=== PATIENT | male | born 1975 | race African-American/Black ===

== ENCOUNTER 2021-04-16 06:03 | Emergency (ER) | payer SELFPAY ==
[~2021-04-16] VITALS: Ht 172.7 cm; Wt 81.8 kg
--- NOTE | 2021-04-16 06:20 | PHYS DOC ---
Adult General Chief Complaint Chief Complaint: MECHANICAL FALL HPI HPI Patient is a 46-year-old male presenting via EMS for fall. This was unwitnessed but at home as patient is a 46-year-old male who still lives with his parents. Patient reportedly urinating and while standing, states he lost his balance and fell hitting the wall and he thinks he hit his head. He is a poor historian. Family who lives with patient reportedly heard a thud against the wall and found patient confused in the bathroom prompting him to call EMS. On arrival, patient found to be hemodynamically stable and subsequently transported to our facility for evaluation. On arrival, patient reports that his cervical spine hurts. States he has never had this happen before. Denies any significant medical issues and takes no medications on a daily basis. Admits to tobacco and marijuana use only Father later presents to ER and assisted with history, states he was the one who heard the thud and responded to patient upstairs. Reports when getting up stairs he found patient walking out of the bathroom with his pants not fully done and again fell to the floor prompting him to call EMS. Sites patient is never seen a primary care physician and has no diagnosed medical issues. 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 Reports that he was there for a couple years but after returning home " he was not in the same", states he spent several years homeless on the streets before relocating and [place] with his parents here in [place] Review of Systems Review of Systems Fourteen body systems of review of systems have been reviewed. See HPI for pertinent positives and negative responses, other tinajero all other systems are negative, non-pertinent or non-contributory Allergies Allergies Allergies Coded Allergies Type Severity Reaction Last Updated Verified No Known Drug Allergies 04/16/21 No Physical Exam Physical Exam Constitutional: Pt is oriented to person, place, and time. Pt appears well-developed and well- nourished. HEENT: Head: Normocephalic and atraumatic. TMs clear, no hemotympanum Conjunctivae and EOM are normal. Pupils are equal, round, and reactive to light. Oropharynx is clear and moist. No hematomas or lacerations or abrasions to face or scalp OP clear, no blood, no malocclusion, dentition intact Nares clear, no nasal septal hematoma Midface stable Neck: C-spine midline nontender, no step-offs Cardiovascular: Normal rate, regular rhythm and normal heart sounds. Pulmonary/Chest: Effort normal and breath sounds normal. No respiratory distress. No wheezes. CTA bilaterally Abdominal: Soft. Bowel sounds are normal. Pt exhibits no distension. There is no tenderness. Musculoskeletal: No bony tenderness to extremities, no deformities, full ROM extremities Chest wall stable Pelvis stable and non-tender No vertebral TTP and spine without stepoffs Neurological: Pt is alert and oriented to person, place, and time. Moving all extremities willfully, able to wiggle all fingers and toes Alert and oriented x 3 Sensation grossly intact Skin: Skin is warm and dry. No abrasions, no lacerations Psychiatric: Behavior is appropriate for situation Current Patient Data Vital Signs Vital Signs Date Time Temp Pulse Resp B/P (MAP) Pulse Ox O2 Delivery O2 Flow Rate FiO2 04/16/21 06:16 97.5 81 18 109/67 (81) 100 Room Air Lab Results Laboratory Tests Test 04/16/21 06:19 04/16/21 06:27 04/16/21 07:02 04/16/21 07:03 Glucose (Fingerstick) 103 mg/dL White Blood Count 6.9 x10^3/uL Red Blood Count 4.35 x10^6/uL Hemoglobin 13.8 g/dL Hematocrit 40.7 % Mean Corpuscular Volume 94 fL Mean Corpuscular Hemoglobin 32 pg Mean Corpuscular Hemoglobin Concent 34 g/dL Red Cell Distribution Width 12.1 % Platelet Count 287 x10^3/uL Neutrophils (%) (Auto) 66 % Lymphocytes (%) (Auto) 16 % Monocytes (%) (Auto) 16 % Eosinophils (%) (Auto) 1 % Basophils (%) (Auto) 1 % Neutrophils # (Auto) 4.5 x10^3uL Lymphocytes # (Auto) 1.1 x10^3/uL Monocytes # (Auto) 1.1 x10^3/uL Eosinophils # (Auto) 0.1 x10^3/uL Basophils # (Auto) 0.1 x10^3/uL Sodium Level 129 mmol/L Potassium Level 4.0 mmol/L Chloride Level 95 mmol/L Carbon Dioxide Level 28 mmol/L Anion Gap 6 Blood Urea Nitrogen 14 mg/dL Creatinine 1.0 mg/dL Estimated GFR (Cockcroft-Gault) 97.3 Glucose Level 92 mg/dL Calcium Level 8.4 mg/dL Troponin I High Sensitivity 7 ng/L Ethyl Alcohol Level < 10 mg/dL Influenza Type A (Rapid) Negative Influenza Type B (Rapid) Negative SARS-CoV-2 Antigen (Rapid) Negative Lactic Acid Level 0.9 mmol/L Test 04/16/21 08:46 Urine Collection Type Unknown Urine Color Anupama Urine Clarity Clear Urine pH 6.0 Urine Specific [place] 1.020 Urine Protein 30 mg/dl Urine Glucose (UA) Neg mg/dL Urine Ketones (Stick) 80 mg/dL Urine Blood Neg Urine Nitrite Neg Urine Bilirubin Small Urine Urobilinogen Dipstick 1.0 mg/dL Urine Leukocyte Esterase Neg Urine RBC 0 /HPF Urine WBC 1-4 /HPF Urine Squamous Epithelial Cells Occ /LPF Urine Bacteria 0 /HPF Urine Granular Casts Few /HPF Urine Mucus Mod /LPF Urine Opiates Screen Neg Urine Methadone Screen Neg Urine Barbiturates Neg Urine Phencyclidine Screen Neg Urine Amphetamine/Methamphetamine Neg Urine Benzodiazepines Screen Neg Urine Cocaine Screen Neg Urine Cannabinoids Screen Pos Urine Ethyl Alcohol Neg Current Medications Medications (Trade) Dose Ordered Sig/Ashley Route PRN Reason Start Time Stop Time Status Last Admin Dose Admin Sodium Chloride 1,000 ml @ 1,000 mls/hr 1X ONCE IV 04/16/21 07:30 04/16/21 08:29 DC 04/16/21 07:29 Azithromycin (Zithromax) 500 mg 1X ONCE PO 04/16/21 09:00 04/16/21 09:01 DC EKG EKG EKG ordered and interpreted by myself at 0640 hrs. sinus rhythm at 85 bpm, unremarkable intervals, no axis deviation, no acute ischemic findings, no STEMI Radiology/Procedures Radiology/Procedures Study: XR PELVIS 1-2V Indication: Fall. Comparison: None. Findings: Hip alignment is anatomic. No fracture seen to involve the proximal femurs or obturator rings. Grossly intact sacrum and partially assessed lower lumbar spine. Probable cam-type deformities on both the right and left. Hip joint space height is maintained. Impression: No acute osseous abnormality identified on the single obtained view. Electronically signed by: TA KIRBY MD (04/16/2021 7:27 AM) [facility] ///////////////// Study: XR CHEST 1V Indication: Fall. Comparison: None. Findings: The cardiomediastinal silhouette is within normal limits for size. Unremarkable raman. Relatively symmetric haziness at the subpleural aspect of both lungs is favored mostly from summation artifact. Mildly increased lung markings. Haziness approaching the right costophrenic angle and the right hemidiaphragm is minimally elevated. No pneumothorax. The osseous structures are not fully evaluated but the adequately assessed ribs are grossly intact. Impression: Mild atelectasis, infiltrates or summation artifact just above the right costophrenic angle. No layering effusion, pneumothorax or obvious fracture. The findings are favored unrelated to the patient's reported fall and may be of no clinical significance but correlate for any symptoms that would suggest an atypical/viral pneumonia. Electronically signed by: TA KIRBY MD (04/16/2021 7:26 AM) [facility] //////////////////////// STUDY: CT head and cervical spine without contrast INDICATION: Fall. Head and neck pain. COMPARISON: None. TECHNIQUE: Axial CT imaging through the head and cervical spine without the use of intravenous contrast. Sagittal and coronal reformats were obtained. One or more of the following individualized dose reduction techniques were utilized for this examination: 1. Automated exposure control 2. Adjustment of the mA and/or kV according to patient size 3. Use of iterative reconstruction technique. FINDINGS: CT head: No acute intracranial hemorrhage. Castro-white matter differentiation is maintained. No mass effect, midline shift or hydrocephalus. Subtle low-attenua tion at the base of the right more so than left frontal lobes, image 8 series 6 and image 20 series 9, may be related to remote trauma. Mild posterior, left paramidline scalp contusion. No depressed calvarial fracture. Paranasal sinus mucosal thickening and some layering fluid favored inflammatory in etiology. Normally aerated mastoid air cells. CT cervical spine: No acute fracture or traumatic malalignment. Straightening of cervical lordosis. Discogenic arthrosis and uncovertebral joint hypertrophy at several levels but greatest at C3-C4 and C5-C6. Small amount of posterior longitudinal ligament ossification. Ventral osteophyte formation. No advanced facet arthrosis. Mild to borderline moderate osseous neural foraminal stenosis on the left at C3-C4 and on the right at C5-C6. Mild to potentially moderate central canal stenosis at a few levels but not fully characterized. No soft tissue sequela of trauma. No apical pneumothorax. IMPRESSION: CT head: 1. Mild left paramidline scalp contusion mainly along the occipital lobe. No depressed calvarial fracture or acute intracranial hemorrhage. 2. Paranasal sinus mucosal thickening and some layering fluid favored inflammatory in etiology. Correlate for any symptoms of active sinusitis. CT cervical spine: 1. No acute fracture or traumatic malalignment. 2. Multilevel degenerative changes which are somewhat accelerated for patient age. Favored mostly mild central canal and neural foraminal stenosis at a few levels but borderline moderate. Electronically signed by: TA KIRBY MD (04/16/2021 7:21 AM) [facility] Heart Score C/O Chest Pain: No HEART Score for Chest Pain: HEART Score for Chest Pain Response (Comments) Value History Moderately Suspicious 1 ECG Normal 0 Age >45 - < 65 1 Risk Factors No Risk Factors 0 Troponin < Normal Limit 0 Total 2 Risk Factors: Risk Factors: DM, Current or recent (<one month) smoker, HTN, HLP, family history of CAD, obesity. Risk Scores: Risk Factors: DM, Current or recent (<one month) smoker, HTN, HLP, family hist ory of CAD, obesity. Course & Med Decision Making Course & Med Decision Making ABCs unremarkable HPI physical exam and comprehensive ER work-up nonconcerning for any emergent or surgical issues I disclosed entirety of ER work-up with patient and father at bedside with good understanding. I discussed findings concerning for atypical/viral pneumonia and sinusiti. Patient unvaccinated against COVID-19 and rapid test negative With that said, joint decision made to aggressively treat with antibiotic therapy with appropriate self quarantine and supportive care instructions advised. I disclosed need for hospitalization but patient and father deferred given well appearance of patient feeling at baseline and ambulatory without issu es Patient does not have primary care physician and so, it was advised that he seek to establish care with a local provider in the area for continuity of care in outpatient setting. Return precautions discussed, all questions and concerns addressed prior to ER departure Dragon Disclaimer Dragon Disclaimer This electronic medical record was generated, in whole or in part, using a voice recognition dictation system. Departure Departure: Impression: Primary Impression: Fatigue Additional Impressions: Syncope Atypical pneumonia Disposition: HOME / SELF CARE / HOMELESS Condition: STABLE Additional Instructions: As discussed prior to ER departure, your vitals, physical exam and comprehensive ER work-up were nonconcerning for any emergent or surgical issues. I disclosed radiographic evidence of sinusitis and potential atypical/viral pneumonia concerning for COVID-19. Your rapid COVID-19 test was negative. I disclose little indication for further diagnostic work-up and/or need for hospitalization at present and joint decision was made to send you home with new prescription for antibiotics. Please take these as scheduled to completion. Is imperative you establish care with a local primary care physician to follow-up on presenting issue today as today's presentation might be an acute presentation of more concerning issues. If any concerning signs or symptoms present prior to outpatient follow-up please do not hesitate to come back for repeat evaluation. It was a pleasure to take care of you and I wish you the best going forward Scripts Azithromycin (AZITHROMYCIN TABLET) 500 Mg Tablet 1 TAB PO DAILY for sinusitis for 2 Days, #2 TAB 0 Refills Prov: NARENDRA WILLSON DO 04/16/21 Problem Qualifiers NARENDRA WILLSON DO Apr 16, 2021 06:20
[2021-04-16 07:04] LABS: BASO # 0.1 x10^3/uL (0.0-0.2); BASO % 1 % (0-3); CALCIUM 8.4 mg/dL (8.5-10.1); EOS # 0.1 x10^3/uL (0.0-0.7); EOS % 1 % (0-3); GFR 97.3; HEMATOCRIT 40.7 % (39.0-53.0); HEMOGLOBIN 13.8 g/dL (13.0-17.5); LYMPH # 1.1 x10^3/uL (1.0-4.8); LYMPH % 16 % (24-48); MEAN CORPUSCULAR HEMOGLOBIN 32 pg (25-35); MEAN CORPUSCULAR HGB CONC 34 g/dL (31-37); MEAN CORPUSCULAR VOLUME 94 fL (79-100); MONO # 1.1 x10^3/uL (0.0-1.1); MONO % 16 % (0-9); NEUT # 4.5 x10^3uL (1.8-7.7); NEUT % 66 % (31-73); PLATELET COUNT 287 x10^3/uL (140-400); RED BLOOD COUNT 4.35 x10^6/uL (4.30-5.70); RED CELL DISTRIBUTION WIDTH 12.1 % (11.5-14.5); WHITE BLOOD COUNT 6.9 x10^3/uL (4.0-11.0)
--- NOTE | 2021-04-16 07:24 | RAD ---
STUDY: CT head and cervical spine without contrast INDICATION: Fall. Head and neck pain. COMPARISON: None. TECHNIQUE: Axial CT imaging through the head and cervical spine without the use of intravenous contra st. Sagittal and coronal reformats were obtained. One or more of the following individualized dose reduction techniques were utilized for this examinat ion: 1. Automated exposure control 2. Adjustment of the mA and/or kV according to patient size 3. Use of iterative reconstruction technique. FINDINGS: CT head: No acute intracranial hemorrhage. Castro-white matter differentiation is maintained. No mass effect, mi dline shift or hydrocephalus. Subtle low-attenuation at the base of the right more so than left front al lobes, image 8 series 6 and image 20 series 9, may be related to remote trauma. Mild posterior, left paramidline scalp contusion. No depressed calvarial fracture. Paranasal sinus mu cosal thickening and some layering fluid favored inflammatory in etiology. Normally aerated mastoid a ir cells. CT cervical spine: No acute fracture or traumatic malalignment. Straightening of cervical lordosis. Discogenic arthrosis and uncovertebral joint hypertrophy at sever al levels but greatest at C3-C4 and C5-C6. Small amount of posterior longitudinal ligament ossificati on. Ventral osteophyte formation. No advanced facet arthrosis. Mild to borderline moderate osseous ne ural foraminal stenosis on the left at C3-C4 and on the right at C5-C6. Mild to potentially moderate central canal stenosis at a few levels but not fully characterized. No soft tissue sequela of trauma. No apical pneumothorax. IMPRESSION: CT head: 1. Mild left paramidline scalp contusion mainly along the occipital lobe. No depressed calvarial fra cture or acute intracranial hemorrhage. 2. Paranasal sinus mucosal thickening and some layering fluid favored inflammatory in etiology. Radha elate for any symptoms of active sinusitis. CT cervical spine: 1. No acute fracture or traumatic malalignment. 2. Multilevel degenerative changes which are somewhat accelerated for patient age. Favored mostly mi ld central canal and neural foraminal stenosis at a few levels but borderline moderate. Electronically signed by: TA KIRBY MD (04/16/2021 7:21 AM) [facility]
--- NOTE | 2021-04-16 07:28 | RAD ---
Study: XR CHEST 1V Indication: Fall. Comparison: None. Findings: The cardiomediastinal silhouette is within normal limits for size. Unremarkable raman. Relatively symmetric haziness at the subpleural aspect of both lungs is favored mostly from summation artifact. Mildly increased lung markings. Haziness approaching the right costophrenic angle and the right hemidiaphragm is minimally elevated. No pneumothorax. The osseous structures are not fully evaluated but the adequately assessed ribs are grossly intact. Impression: Mild atelectasis, infiltrates or summation artifact just above the right costophrenic angle. No layer ing effusion, pneumothorax or obvious fracture. The findings are favored unrelated to the patient's r eported fall and may be of no clinical significance but correlate for any symptoms that would suggest an atypical/viral pneumonia. Electronically signed by: TA KIRBY MD (04/16/2021 7:26 AM) [facility]
[2021-04-16] MEDS ORDERED: IV NORMAL SALINE 1,000ML 1,000 ML IV ONE (07:30)
--- NOTE | 2021-04-16 07:30 | RAD ---
Study: XR PELVIS 1-2V Indication: Fall. Comparison: None. Findings: Hip alignment is anatomic. No fracture seen to involve the proximal femurs or obturator rings. Grossl y intact sacrum and partially assessed lower lumbar spine. Probable cam-type deformities on both the right and left. Hip joint space height is maintained. Impression: No acute osseous abnormality identified on the single obtained view. Electronically signed by: TA KIRBY MD (04/16/2021 7:27 AM) [facility]
[2021-04-16 08:08] VITALS: BP 119/72
[2021-04-16 08:33] LABS: INFLUENZA A PATIENT NEGATIVE (NEGATIVE); INFLUENZA B PATIENT NEGATIVE (NEGATIVE)
--- NOTE | 2021-04-16 08:54 | EKG ---
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
[2021-04-16] MEDS ORDERED: AZITHROMYCIN 250 MG TABLET. PO ONE (09:00)
[2021-04-16 09:08] LABS: BARBITURATES NEG (NEG); BENZODIAZEPINES NEG (NEG); CANNABINOIDS POS (NEG); COCAINE NEG (NEG); METHADONE NEG (NEG); OPIATES NEG (NEG); PHENCYCLIDINE NEG (NEG)
[2021-04-16 09:12] LABS: AMPHETAMINE/METHAMPHETAMINE NEG (NEG)
[2021-04-16 09:24] LABS: BACTERIA,URINE 0 /HPF (0-FEW); BILIRUBIN,URINE SMALL (NEG); CLARITY,URINE CLEAR; COLOR,URINE AMBER; GLUCOSE,URINE NEG (NEG); GRANULAR CASTS,URINE FEW /HPF; NITRITE,URINE NEG (NEG); RBC,URINE 0 /HPF (0-2); SQUAMOUS EPITHELIAL CELL,UR OCC /LPF
[2021-04-16] MEDS ORDERED: AZIT500T4 PO (09:36)
== END 2021-04-16 09:50 | disposition home or self-care (01) ==
LOC: ER 06:03
DX: R55 Syncope and collapse (principal); J18.9 Pneumonia, unspecified organism; R53.83 Other fatigue; Z20.822 Contact with and (suspected) exposure to COVID-19; W18.09XA Striking against other object with subsequent fall, initial encounter; Y93.89 Activity, other specified; Y92.89 Other specified places as the place of occurrence of the external cause; Y99.8 Other external cause status
CPT/HCPCS: 36415; 70450; 71045; 72125; 72170; 80048; 80307; 81001; 82947; 83605; 84484; 85025; 87428; 93005; 96360; 96361; 99285; G0480; J7030

== ENCOUNTER 2021-05-16 08:11 | Emergency (ER) | payer SELFPAY ==
[~2021-05-16] VITALS: Ht 172.7 cm; Wt 79.0 kg
[~2021-05-16 08:11] MED LIST: AZIT500T4 PO
--- NOTE | 2021-05-16 08:26 | PHYS DOC ---
Past History Past Surgical History: Other Additional Past Surgical Histo: wisdom teeth Smoking: Cigarettes Alcohol Use: None Drug Use: Methamphetamine Adult General Chief Complaint Chief Complaint: DRUG ABUSE HPI HPI Patient is a 46-year-old male presenting for methamphetamine abuse. This is a chronic issue. States he has been using meth since a teenager. Reports he last used 5 hours ago, states he used some stuff " that is supposed to kill people". Reports that he has things crawling in his skin and specifically in his neck he feels it crawling down from the posterior portion of his occiput down to his anterior neck. Denies any falls trauma fever or other diagnosed medical condit ions, takes no other medications on a daily basis. He is here concerned that he is going to Review of Systems Review of Systems Fourteen body systems of review of systems have been reviewed. See HPI for pertinent positives and negative responses, other tinajero all other systems are negative, non-pertinent or non-contributory Allergies Allergies Allergies Coded Allergies Type Severity Reaction Last Updated Verified No Known Drug Allergies 04/16/21 No Physical Exam Physical Exam Constitutional: Appears older than stated age, acutely anxious and appears under the influence of methamphetamines, nontoxic in appearance HENT: Normocephalic, atraumatic, bilateral external ears normal, oropharynx moist with poor dentition globally, no oral exudates, nose normal. Eyes: PERRLA, EOMI, conjunctiva normal, no discharge. Neck: Normal range of motion, no tenderness, supple, no stridor. Cardiovascular: Heart rate tachycardic, sinus rhythm, no murmurs rubs or gallops Lungs & Thorax: Bilateral breath sounds clear to auscultation Abdomen: Bowel sounds normal, soft, no tenderness, no masses, no pulsatile masses. Nonsurgical abdomen, no peritoneal signs Skin: Warm, dry, no erythema, no rash. Numerous IV drug sites to bilateral upper extremities in addition to minute pinpricks along entirety of back that are self-induced per patient Back: No tenderness, no CVA tenderness. Extremities: No tenderness, no cyanosis, no clubbing, ROM intact, no edema. Neurologic: Alert and oriented X 3, normal motor & sensory function, no focal deficits noted. Psychologic: Anxious affect and mood Current Patient Data Vital Signs Vital Signs Date Time Temp Pulse Resp B/P (MAP) Pulse Ox O2 Delivery O2 Flow Rate FiO2 05/16/21 08:27 98.2 120 20 146/99 (115) 98 Room Air Vital Signs Date Time Temp Pulse Resp B/P (MAP) Pulse Ox O2 Delivery O2 Flow Rate FiO2 05/16/21 08:27 98.2 120 20 146/99 (115) 98 Room Air Lab Results Laboratory Tests Test 05/16/21 09:10 White Blood Count 4.5 x10^3/uL Red Blood Count 3.80 x10^6/uL Hemoglobin 12.3 g/dL Hematocrit 36.8 % Mean Corpuscular Volume 97 fL Mean Corpuscular Hemoglobin 32 pg Mean Corpuscular Hemoglobin Concent 34 g/dL Red Cell Distribution Width 13.8 % Platelet Count 264 x10^3/uL Neutrophils (%) (Auto) 62 % Lymphocytes (%) (Auto) 22 % Monocytes (%) (Auto) 12 % Eosinophils (%) (Auto) 3 % Basophils (%) (Auto) 1 % Neutrophils # (Auto) 2.8 x10^3uL Lymphocytes # (Auto) 1.0 x10^3/uL Monocytes # (Auto) 0.5 x10^3/uL Eosinophils # (Auto) 0.1 x10^3/uL Basophils # (Auto) 0.0 x10^3/uL Sodium Level 139 mmol/L Potassium Level 3.4 mmol/L Chloride Level 105 mmol/L Carbon Dioxide Level 28 mmol/L Anion Gap 6 Blood Urea Nitrogen 11 mg/dL Creatinine 1.0 mg/dL Estimated GFR (Cockcroft-Gault) 97.3 Glucose Level 129 mg/dL Calcium Level 8.6 mg/dL Troponin I High Sensitivity 5 ng/L EKG EKG EKG ordered and interpreted by myself at 0842 hrs. as sinus tachycardia at 117 bpm, QTC 510 otherwise unremarkable intervals, no axis deviation, no acute ischemic findings, occasional PVCs present, no STEMI Radiology/Procedures Radiology/Procedures EXAM: CHEST ONE VIEW. HISTORY: Chest pain. COMPARISON: 04/16/2021. FINDINGS: A frontal view of the chest is obtained. The inspiration is small with bibasilar atelectasis. There is no pneumothorax or pleural effusion. The heart is not enlarged. IMPRESSION: 1. Small inspiration with bibasilar atelectasis. Electronically signed by: Danny Brunson MD (05/16/2021 9:31 AM) [facility] Heart Score C/O Chest Pain: No Risk Factors: Risk Factors: DM, Current or recent (<one month) smoker, HTN, HLP, family history of CAD, obesity. Risk Scores: Risk Factors: DM, Current or recent (<one month) smoker, HTN, HLP, family history of CAD, obesity. Course & Med Decision Making Course & Med Decision Making Repeat comminuting unlabored, IV access and vitals obtained concerning for tachycardia only HPI physical exam comprehensive ER work-up nonconcerning for any emergent or surgical issues. Patient's presenting symptoms likely paranoia related to ongoing methamphetamine abuse. Cessation advised I disclose little indication for further diagnostic nonstick work-up and/or need for hospitalization, methamphetamine cessation and close outpatient follow-up advised Aleida Disclaimer Aleida Disclaimer This electronic medical record was generated, in whole or in part, using a voice recognition dictation system. Departure Departure: Impression: Primary Impression: Illicit drug use, continuous Disposition: HOME / SELF CARE / HOMELESS Condition: STABLE Referrals: PCP,TEJ (PCP) Additional Instructions: You were seen for chest pain and other symptoms related to your ongoing illicit drug abuse. Your workup did not show any acute abnormalities today, but does not indicate that you do not have underlying cardiovascular disease. You do need to follow up with your primary doctor and potentially a senior financial reporting accountant for further evaluation and treatment. You should return to the ED if you develop worsening chest pain, shortness of breath, fever, abnormal sweating, leg swelling, or any other new or concerning symptoms. NARENDRA WILLSON DO May 16, 2021 08:26
--- NOTE | 2021-05-16 09:08 | EKG ---
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
[2021-05-16 09:21] LABS: BASO % 1 % (0-3); EOS # 0.1 x10^3/uL (0.0-0.7); EOS % 3 % (0-3); HEMATOCRIT 36.8 % (39.0-53.0); HEMOGLOBIN 12.3 g/dL (13.0-17.5); LYMPH % 22 % (24-48); MEAN CORPUSCULAR HEMOGLOBIN 32 pg (25-35); MEAN CORPUSCULAR HGB CONC 34 g/dL (31-37); MEAN CORPUSCULAR VOLUME 97 fL (79-100); MONO # 0.5 x10^3/uL (0.0-1.1); MONO % 12 % (0-9); NEUT # 2.8 x10^3uL (1.8-7.7); NEUT % 62 % (31-73); PLATELET COUNT 264 x10^3/uL (140-400); RED CELL DISTRIBUTION WIDTH 13.8 % (11.5-14.5); WHITE BLOOD COUNT 4.5 x10^3/uL (4.0-11.0)
--- NOTE | 2021-05-16 09:33 | RAD ---
EXAM: CHEST ONE VIEW. HISTORY: Chest pain. COMPARISON: 04/16/2021. FINDINGS: A frontal view of the chest is obtained. The inspiration is small with bibasilar atelectasis. There is no pneumothorax or pleural effusion. Th e heart is not enlarged. IMPRESSION: 1. Small inspiration with bibasilar atelectasis. Electronically signed by: Danny Brunson MD (05/16/2021 9:31 AM) [facility]
[2021-05-16 09:39] LABS: CALCIUM 8.6 mg/dL (8.5-10.1); GFR 97.3; POTASSIUM 3.4 mmol/L (3.5-5.1)
[2021-05-16 10:25] VITALS: BP 140/95
== END 2021-05-16 10:29 | disposition home or self-care (01) ==
LOC: ER 08:11
DX: F15.10 Other stimulant abuse, uncomplicated (principal); F17.210 Nicotine dependence, cigarettes, uncomplicated
CPT/HCPCS: 36415; 71045; 80048; 84484; 85025; 93005; 99285